=== PATIENT | male | born 1960 | race Caucasian/White ===

== ENCOUNTER 2016-12-11 20:43 | Emergency (ER) | payer OTHER ==
[~2016-12-11] VITALS: Ht 185.4 cm; Wt 100.0 kg
[~2016-12-11 20:43] MED LIST: ASPI-628 PO; LISI40TA PO
[2016-12-11 20:55] VITALS: BP 131/76; PULSE 83; RESP 20; O2SAT 98
--- NOTE | 2016-12-11 21:54 | ED.REPORT ---
HPI-Altered Mental Status Date of Service Dec 11, 2016 ED Provider: Matthias Kumar MD Patient is a 56 year old male with a history of seizure disorder on Keppra and internal carotid stenosis with prior TIAs who presents to the ED via EMS following an episode of confusion this evening. His reports that the patient was sitting on the couch when he suddenly reported that he was dizzy and that his hands were going numb. He then started going in and out of consciousness, gasping for air. She reports that he was unable to comprehend language and that he was just repeating the same words over and over. During previous seizure-like episodes, the patient was paralyzed from the neck down. She states that his symptoms tonight were more severe than usual. He does not have the typical jerking motions associated with seizures. The patient states that he was laying on the couch watching TV and states that the next thing he remembers is waking up in the ambulance. The patient was recently started on Keppra (500mg twice daily) by Dr. Roper, after an EEG was performed. Patient has been taking this medication as prescribed. The patient has reportedly had several TIAs, with recent MRI showing moderate stenosis of the right internal carotid artery. Patient denies fever, chills, or sustaining any injuries. Nursing Notes Stated Complaint: SEIZURE LIKE ACTIVITY Chief Complaint: Neuro Symptoms/ Deficits Nursing Notes Reviewed: Yes Allergies: Coded Allergies: ibuprofen (Verified Allergy, Unknown, hives, 02/12/15) Scheduled Aspirin (Aspir 81) 81 Mg Tablet.dr 81 MG PO DAILY Levetiracetam (Levetiracetam) 1,000 Mg Tablet 1,000 MG PO BID Lisinopril (Lisinopril) 40 Mg Tablet 40 MG PO DAILY General Time Seen by MD: 21:47 Chief Complaint Seizure activity Hx Obtained From: Patient, Spouse Arrived By: Ambulance Sudden in Onset?: No Onset Occurred: Yesterday Symptom Duration: 1 - 15 minutes Severity: Current: No pain currently Severity: Maximum: No pain Recent Healthcare: No recent hospitalization, Recent doctor visit Similar Sx Previous: Yes Past Medical History Past Medical History seizure disorder on Keppra internal carotid stenosis with prior TIAs Reports: Hypertension Past Surgical History Elbow surgery Reports: Appendectomy Family History Grandfather of an [place] at an elderly age Smoking History Current Every Day Smoker Social History Alcohol Use: 1-3 per day Drug Use: Denies drug use Other Social History: Good social support, , Local resident Ambulatory Status Independent Review of Systems Constitutional: Denies: Chills, Fever Respiratory: Reports: Shortness of breath, Denies: Non-productive cough Neurologic: Reports: Change LOC, Dizziness, Numbness, Seizure, Unable to speak Complete sys rev & neg: except as marked. Physical Exam Initial Vital Signs Vital Signs (First) Date Time Temp Pulse Resp B/P Pulse Ox O2 Delivery O2 Flow Rate FiO2 12/11/16 20:55 36.6 83 20 131/76 98 Room Air Initial VS: Reviewed, Vital signs normal ENT: Conjunctiva normal, No scleral icterus Abdomen / GI: Soft, Non-tender, No guarding, No rebound Extremities: Vascular intact, Neuro intact Skin: Warm, Dry, No cyanosis Psychiatric: Mood/affect normal, Behavior normal, Normal thought content General/Constitutional: Awake, Alert, No acute distress Head / Eyes: Atraumatic, Normocephalic, PERRL Neck: Supple, Full range of motion Respiratory / Chest: Breath sounds NL, Breath sounds = bilat, No respiratory distress, No rales, No rhonchi, No wheezing Cardiovascular: Heart rate NL, Regular rhythm, Heart sounds NL, No murmurs Neurologic: Oriented X3, Speech NL, No motor deficits, No sensory deficits, CN II - XII intact Interpretation & Diagnostics Interpretation & Diagnostics: Keppra level is pending Lab Results Interpretation Result Diagram: 12/11/16205312/11/162053 Test 12/11/16 20:54 White Blood Count 9.0th/mm3 (3.8-10.1) Red Blood Count 4.69mil/mm3 (4.40-5.80) Hemoglobin 15.3g/dL (13.8-17.2) Hematocrit 43.3% (41.0-50.0) Mean Corpuscular Volume 92.3fL (81-100) Mean Corpuscular Hemoglobin 32.6pg (27.0-35.0) Mean Corpuscular Hemoglobin Concent 35.3% (32.0-37.0) Red Cell Distribution Width 12.5% (12.3-15.4) Platelet Count 223bil/L (150-400) Neutrophils (%) (Auto) 43.1% (40-74) Lymphocytes (%) (Auto) 40.7% (14-46) Monocytes (%) (Auto) 10.1% (4-12) Eosinophils (%) (Auto) 4.8% (0-5) Basophils (%) (Auto) 1.2% (0-3) Hold Purple Top Tube Received (Received) Hold Blue Top Tube Received (Received) Sodium Level 141mEq/L (134-144) Potassium Level 4.4mEq/L (3.5-5.2) Chloride Level 101mEq/L (97-108) Carbon Dioxide Level 23mmol/L (18-29) Blood Urea Nitrogen 26mg/dL (6-24) Creatinine 0.94mg/dL (0.76-1.27) Estimat Glomerular Filtration Rate 88mL/min (>59) Glucose Level 107mg/dL (60-99) Calcium Level 8.9mg/dL (8.5-10.1) Magnesium Level 2.5mg/dL (1.6-2.6) Total Bilirubin 0.4mg/dL (0.0-1.2) Aspartate Amino Transf (AST/SGOT) 32U/L (0-50) Alanine Aminotransferase (ALT/SGPT) 47U/L (0-44) Alkaline Phosphatase 60U/L (25-150) Total Protein 7.7g/dL (6.4-8.4) Albumin 4.7g/dL (3.4-5.0) Hold Red Top Tube Received (Received) Hold [place] Top Tube Received (Received) Lab values outside NL range: no clinical significance. Re-Eval/Medical Decision Med Decision/Clinical Course 56-year-old male with a breakthrough seizure. His case was discussed with Dr. Roper. We will increase his Keppra from 500 twice a day to 1000 twice a day. Keppra level is pending. Follow-up with Dr. Roper as needed. Source of Hx: Old records Re-Evaluation/Progress : Time of Eval: 00:53 Re-Evaluation/Progress Note: Rechecked the patient. Discussed the results of his labs and the conversation with Dr. Roper. Patient understands and agrees with the plan to be discharged home. Discharge instructions and follow-up discussed. All questions were addressed. Return to the ED warnings given. 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 Roper, neurology, about the patient's case. He suggests to double the patient's Keppra dose. Counseled Regarding: Diagnosis, Lab results, Need for follow-up, When/why to return to ED Patient Discharge & Departure Impression: Primary Impression: Breakthrough seizure Disposition: Home Discharge Condition All VS Reviewed: Yes Condition: Improved Patient Instructions: Epilepsy (ED) Additional Instructions: Your case was discussed with Dr. Roper. He recommended increasing her Keppra from 500mg to 1000mg twice daily. Follow up with him as needed. Referrals: Kashif Rosenbaum MD (PCP) Genaro Roper MD Attestation Portions of this note were transcribed by Maria Elena Leonardo. I, Dr. Kumar personally performed the history, physical exam and medical decision-making; I reviewed and confirmed the accuracy of the information in the transcribed note. Signed by: Denny Castaneda, 12/12/2016 0054 copies to: Kashif Rosenbaum MD; Genaro Roper MD, Howard L MD Dec 11, 2016 21:54 Maria Elena Leonardo Dec 11, 2016 22:01
[2016-12-11 22:11] LABS: BASOPHILS % (AUTO) 1.2 % (0-3); EOSINOPHILS % (AUTO) 4.8 % (0-5); MONOCYTES % (AUTO) 10.1 % (4-12); Mean Corpuscular Hemoglobin 32.6 pg (27.0-35.0); Mean Corpuscular Volume 92.3 fL (81-100); NEUTROPHILS % (AUTO) 43.1 % (40-74); Platelet Count 223 bil/L (150-400)
[2016-12-11 22:22] LABS: Magnesium 2.5 mg/dL (1.6-2.6)
[2016-12-12] MEDS ORDERED: LEVE10006 PO (00:51)
[2016-12-12 01:47] VITALS: BP 142/74; PULSE 76; RESP 14; O2SAT 97
== END 2016-12-12 01:30 | disposition home or self-care (01) ==
LOC: EDBD 20:43 → EDSEX 20:43 → SED 20:43
DX: R56.9 Unspecified convulsions (principal); I10 Essential (primary) hypertension; F17.200 Nicotine dependence, unspecified, uncomplicated; Z86.73 Personal history of transient ischemic attack (TIA), and cerebral infarction without residual deficits; Z79.82 Long term (current) use of aspirin; Z88.6 Allergy status to analgesic agent